=== PATIENT | female | born 1980 | race Caucasian/White ===

== ENCOUNTER 2018-03-13 12:07 | Emergency (ER) | payer MEDICAID ==
[2018-03-13] MEDS ORDERED: ALBUTEROL NEB 2.5 MG/3 ML INH STA (12:21)
[2018-03-13] MEDS ORDERED: guaiFENesin/CODEINE 5 ML UDC PO STA (12:21)
[2018-03-13] MEDS ORDERED: DOCUSATE SODIUM 250 MG CAPSULE PO STA (12:21)
--- NOTE | 2018-03-13 12:23 | ED Physician Documentation ---
History of Present Illness - Stated complaint Stated Complaint: DIZZY/COUGH/EAR PX - Chief complaint Chief Complaint: General - History obtained from History obtained from: Patient, Family - History of Present Illness Timing: Other (Sick for 5 days, it started with prominent body aches and fevers and morphed into productive cough with posttussive emesis, left ear pain and dizziness. She is not running fevers anymore that she knows of. No possibility of and no underlying illnesses. 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 - Present Medications Home Medications: Ambulatory Orders Medication Instructions Recorded Confirmed Albuterol Sulf [Ventolin Hfa 1 - 2 puffs INH Q4HR PRN #1 inhaler 03/13/18 Inhaler] Hydrocodone Bit/Homatrop Me-Br 5 - 10 ml PO Q4HR PRN #120 ml 03/13/18 [Hydrocodone-Homatropine Syrup] Levofloxacin [Levaquin] 750 mg PO DAILY #6 tablet 03/13/18 Meclizine [Antivert] 25 mg PO Q6H PRN #15 tablet 03/13/18 - Allergies Allergies/Adverse Reactions: Allergies Allergy/AdvReac Type Severity Reaction Status Date / Time amoxicillin [Amoxicillin] Allergy Rash Verified 01/21/15 12:56 erythromycin base Allergy Rash Verified 03/13/18 12:13 [Erythromycin Base] - Social History Does the pt smoke?: Yes Smoking Status: Former smoker Does the pt drink ETOH?: No Does the pt have substance abuse?: No - POLST Patient has POLST: No POLST Status: Full Code PD ED PE NORMAL - Vitals Vital signs reviewed: Yes (Tachycardic) - General General: Alert and oriented X 3, No acute distress - HEENT HEENT: PERRL, EOMI, Pharynx benign, Other (Initially unable to view the tympanic membranes due to cerumen bilaterally) - Neck Neck: Supple, no meningeal sign, No bony TTP - Cardiac Cardiac: RRR, No murmur - Respiratory Respiratory: Other (Diminished and rhonchorous at the bases, nonlabored) - Abdomen Abdomen: Non tender - Derm Derm: No rash - Neuro Neuro: Alert and oriented X 3, Normal speech Results - Vitals Vitals: Vital Signs - 24 hr 03/13/18 03/13/18 12:09 13:00 Temperature 37.1 C Heart Rate 122 H 124 H Respiratory 22 16 Rate Blood Pressure 141/102 H O2 Saturation 98 Oxygen O2 Source Room air - Labs Labs: Laboratory Tests 03/13/18 03/13/18 03/13/18 13:00 13:28 13:28 WBC 12.8 H RBC 4.80 Hgb 13.5 Hct 38.7 MCV 80.6 L MCH 28.1 MCHC 34.8 RDW 14.3 Plt Count 349 MPV 9.0 Neut # (Auto) 9.7 H Lymph # (Auto) 1.8 Pitt # (Auto) 1.2 H Eos # (Auto) 0.0 Baso # (Auto) 0.0 Absolute Nucleated RBC 0.00 Nucleated RBC % 0.0 Sodium 132 L Potassium 3.1 L Chloride 101 Carbon Dioxide 18 L Anion Gap 13.0 BUN 7 Creatinine 0.6 Estimated GFR (MDRD) 112 Glucose 113 H Lactic Acid Calcium 9.0 Total Bilirubin 1.4 H AST 65 H ALT 67 H Alkaline Phosphatase 80 Total Protein 7.6 Albumin 4.2 Globulin 3.4 Albumin/Globulin Ratio 1.2 Lipase 20 L Influenza A (Rapid) Negative Influenza B (Rapid) Negative 03/13/18 13:28 WBC RBC Hgb Hct MCV MCH MCHC RDW Plt Count MPV Neut # (Auto) Lymph # (Auto) Pitt # (Auto) Eos # (Auto) Baso # (Auto) Absolute Nucleated RBC Nucleated RBC % Sodium Potassium Chloride Carbon Dioxide Anion Gap BUN Creatinine Estimated GFR (MDRD) Glucose Lactic Acid 1.3 Calcium Total Bilirubin AST ALT Alkaline Phosphatase Total Protein Albumin Globulin Albumin/Globulin Ratio Lipase Influenza A (Rapid) Influenza B (Rapid) - Rads (name of study) 2v chest Radiology: EMP read contemporaneously (Bronchitis with mild left basilar pneumonia) Procedures - General procedure General procedure: Cerumen was removed from the left ear using a combination of syringe irrigation and Debrox with good success and she does have otitis media on the left. PD MEDICAL DECISION MAKING - ED course ED course: 37-year-old woman presents with prodrome of flulike symptoms and now predominant productive cough. She is persistently tachycardic and therefore an IV was placed fluids were given and labs were checked. She has modest leukocytosis, mild Hypokalemia and mild hepatitis probably from the underlying viral syndrome. Better after symptomatic treatment With cough syrup, meclizine, IV fluids. Potassium was repleted orally. She was given IV Levaquin. Recheck of the liver enzymes was advised after the illness. She also has left otitis media but the pneumonia is more pressing. Departure - Departure Disposition: Home, Self Care Clinical Impression: Dehydration, Hypokalemia, Elevated liver enzymes LOM (left otitis media) Qualifiers: Otitis media type: suppurative Chronicity: acute Recurrence: not specified as recurrent Spontaneous tympanic membrane rupture: without spontaneous rupture Qualified Code(s): H66.002 - Acute suppurative otitis media without spontaneous rupture of ear drum, left ear Left lower lobe pneumonia Qualifiers: Pneumonia type: due to unspecified organism Qualified Code(s): J18.1 - Lobar pneumonia, unspecified organism Condition: Good Record reviewed to determine appropriate education?: Yes Instructions: Hypokalemia Dc, ED Pneumonia Adult Prescriptions: Albuterol Sulf [Ventolin Hfa Inhaler] 1 - 2 puffs INH Q4HR PRN #1 inhaler PRN Reason: Shortness Of Air/Wheezing Hydrocodone Bit/Homatrop Me-Br [Hydrocodone-Homatropine Syrup] 5 - 10 ml PO Q4HR PRN #120 ml PRN Reason: Cough Levofloxacin [Levaquin] 750 mg PO DAILY #6 tablet Meclizine [Antivert] 25 mg PO Q6H PRN #15 tablet PRN Reason: Vertigo Comments: As discussed you should follow-up with your physician towards the end of the week, consider rechecking mildly elevated liver enzymes to make sure that has resolved with the illness. Also blood pressure recheck is yours was high here today in the range of 140/100. Return for new or worsening symptoms. Drink plenty of fluids. Forms: Activity restrictions
[2018-03-13] MEDS ORDERED: CARBAMIDE PEROXIDE 6.5% OTIC DROPS LEFTEAR ONE (12:27)
[2018-03-13] MEDS ORDERED: MECLIZINE 12.5 MG TABLET PO STA (12:34)
--- NOTE | 2018-03-13 12:47 | XRAY Report ---
Reason: cough Procedure Date: 03/13/2018 Accession Number: [id number] / [id number] Procedure: XR - Chest 2 View X-Ray CPT Code: 35532 FULL RESULT: EXAM: CHEST RADIOGRAPHY EXAM DATE: 03/13/2018 12:36 PM. CLINICAL HISTORY: Cough. COMPARISON: 09/01/2013. TECHNIQUE: 2 views. FINDINGS: Lungs/Pleura: Small amount of groundglass opacity at the left lung base. Minimal bronchial wall thickening. No pleural effusion. No pneumothorax. Mediastinum: Cardiac silhouette size appears unremarkable. Other: None. IMPRESSION: Minimal bronchial wall thickening and small amount of groundglass at the left lung base, suggesting airway inflammation with mild pneumonia in the proper setting. RADIA
[2018-03-13] MEDS ORDERED: SODIUM CHLORIDE 0.9% 1,000 ML IV ONE (12:55)
[2018-03-13 13:44] LABS: ALBUMIN 4.2 g/dL (3.2-5.5); ALBUMIN/GLOBULIN RATIO 1.2 (1.0-2.2); BILIRUBIN,TOTAL 1.4 mg/dL (0.2-1.0); CREATININE 0.6 mg/dL (0.4-1.0); TOTAL PROTEIN 7.6 g/dL (6.7-8.2)
[2018-03-13 13:53] LABS: BASOPHILS % (AUTO) 0.4 %; EOSINOPHILS % (AUTO) 0.2 %; HGB - HEMOGLOBIN 13.5 g/dL (12.0-16.0); LYMPHOCYTES # (AUTO) 1.8 10^3/uL (1.5-3.5); MEAN CORPUSCULAR HEMOGLOBIN 28.1 pg (27.0-31.0); MEAN CORPUSCULAR HGB CONC 34.8 g/dL (32.0-36.0); MEAN CORPUSCULAR VOLUME 80.6 fL (81.0-99.0); MONOCYTES # (AUTO) 1.2 10^3/uL (0.0-1.0); MONOCYTES % (AUTO) 9.4 %; NEUTROPHILS # (AUTO) 9.7 10^3/uL (1.5-6.6); PLT - PLATELET COUNT 349 10^3/uL (130-450); RED CELL DISTRIBUTION WIDTH 14.3 % (12.0-15.0); WHITE BLOOD COUNT 12.8 x10^3/uL (4.8-10.8)
[2018-03-13] MEDS ORDERED: levoFLOXacin 750 MG/150 ML 750 MG/150 ML BAG IV ONE (14:02)
[2018-03-13] MEDS ORDERED: IOPAMIDOL-300 100 ML VIAL ONE (14:07)
[2018-03-13] MEDS ORDERED: POTASSIUM BICARB 25 MEQ TABLET PO STA (14:11)
[2018-03-13 15:30] VITALS: BP 122/89
== END 2018-03-13 15:35 | disposition home or self-care (01) ==
LOC: ED 12:07
DX: E86.0 Dehydration (principal); E87.6 Hypokalemia; R74.8 Abnormal levels of other serum enzymes; H66.002 Acute suppurative otitis media without spontaneous rupture of ear drum, left ear; J18.1 Lobar pneumonia, unspecified organism; H61.22 Impacted cerumen, left ear
CPT/HCPCS: 36415; 69209; 71046; 80053; 83605; 83690; 85025; 87275; 87276; 94640; 96365; 99283; A9270

== ENCOUNTER 2018-09-26 15:51 | Emergency (ER) | payer MEDICAID ==
--- NOTE | 2018-09-26 16:56 | ED Physician Documentation ---
PD HPI LOWER EXT INJURY - Stated complaint Stated Complaint: L LEG PAIN/MUSCLE SPASMS - Chief complaint Chief Complaint: Ext Problem - History obtained from History obtained from: Patient - History of Present Illness PD HPI LOW EXT INJURY LOCATION: Left, Thigh, Calf Type of injury: No: Fall, Twist Where injury occurred: Home Timing - onset: How many weeks ago (2-3) Timing - duration: Weeks (2-3) Timing - details: Abrupt onset (she was just walking normally and felt sudden po p and pain in left posterolateral thigh. Has pain there and feels she is having muscle spasms. The pain and spasms have increased. She is limping and is also feeling pain in calf and behind knee now as well. Feeling like continue muscle spasm the past several days. No bruising.) Improved by: Rest Worsened by: Moving, Palpating, Other (walking) Associated symptoms: No: Weakness, Numbness, Discolored Similar symptoms before: Has not had sx before Recently seen: Not recently seen Review of Systems Constitutional: denies: Fever, Chills Cardiac: denies: Chest pain / pressure Respiratory: denies: Dyspnea, Cough Skin: denies: Rash, Lesions Musculoskeletal: denies: Back pain Neurologic: denies: Focal weakness, Numbness PD PAST MEDICAL HISTORY - Past Medical History Cardiovascular: None Respiratory: None Neuro: None Endocrine/Autoimmune: None GI: None AUTO HIKER: None : None HEENT: None Psych: None Musculoskeletal: None Derm: None - Past Surgical History 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 - Present Medications Home Medications: Ambulatory Orders Medication Instructions Recorded Confirmed Hydrocodone Bit/Homatrop Me-Br 5 - 10 ml PO Q4HR PRN #120 ml 03/13/18 [Hydrocodone-Homatropine Syrup] Levofloxacin [Levaquin] 750 mg PO DAILY #6 tablet 03/13/18 RX: Albuterol Sulf [Ventolin Hfa 1 - 2 puffs INH Q4HR PRN #1 inhaler 03/13/18 Inhaler] RX: Meclizine [Antivert] 25 mg PO Q6H PRN #15 tablet 03/13/18 Dexamethasone [Decadron] 4 mg PO DAILY #5 tablet 09/26/18 Hydrocodone/Acetaminophen [Paris 1 each PO Q6H PRN #20 tablet 09/26/18 5-325 Tablet] RX: diazePAM [Diazepam] 5 mg PO BID PRN #20 tablet 09/26/18 - Allergies Allergies/Adverse Reactions: Allergies Allergy/AdvReac Type Severity Reaction Status Date / Time amoxicillin [Amoxicillin] Allergy Rash Verified 09/26/18 16:06 erythromycin base Allergy Rash Verified 09/26/18 16:06 [Erythromycin Base] - Social History Does the pt smoke?: Yes Smoking Status: Former smoker Does the pt drink ETOH?: No Does the pt have substance abuse?: No - Immunizations Immunizations are current?: Yes - POLST Patient has POLST: No POLST Status: Full Code PD ED PE NORMAL - Vitals Vital signs reviewed: Yes - General General: Alert and oriented X 3, Well developed/nourished, Other (appears in pain behind left thigh and knee. guarded ROM of the knee.) - Back Back: No spinal TTP, Other (not tender in back muscles. ) - Derm Derm: Normal color, Warm and dry - Extremities Extremities: No edema, No calf tenderness / cord, Other (She is tender in lateral hamstring muscle belly area. Not tender at lower thigh/tendons area, though palpation of the tendons lower posterior thigh and popliteal area causes pain in muscle higher. No bruising noted. ) - Neuro Neuro: No motor deficit, No sensory deficit Results - Vitals Vitals: Vital Signs - 24 hr 09/26/18 09/26/18 16:01 18:27 Temperature 36.6 C 36.4 C L Heart Rate 88 74 Respiratory 18 18 Rate Blood Pressure 177/112 H 125/97 H O2 Saturation 100 97 Oxygen O2 Source Room air - Rads (name of study) duplex U/S Radiology: Prelim report reviewed (no DVT), See rad report PD MEDICAL DECISION MAKING - ED course Complexity details: considered differential (seems like hamstring muscle strain/partial tear, but not at tendons, with spasms. Likely pesissting and not healing due to continued use (normal walking). Will add crutches and knee brace.), d/w patient Departure - Departure Disposition: 01 Home, Self Care Clinical Impression: Hamstring tear Condition: Stable Record reviewed to determine appropriate education?: Yes Instructions: ED Strain Muscle Ext Follow-Up: Toni Blair MD [Provider Admit Priv/Credential] - Prescriptions: Dexamethasone [Decadron] 4 mg PO DAILY #5 tablet RX: diazePAM [Diazepam] 5 mg PO BID PRN #20 tablet PRN Reason: Spasms Hydrocodone/Acetaminophen [Paris 5-325 Tablet] 1 each PO Q6H PRN #20 tablet PRN Reason: Pain Comments: Use of crutches for partial weightbearing to reduce the amount of strain and stress on the hamstring muscles with walking. Use the knee brace to help support the knee and thereby less use of the hamstring muscle as well. Continue the naproxen/Aleve 2 to 3 tablets twice a day as an anti-inflammatory effect. You can add Decadron steroid for inflammation as well for the next several days. Use diazepam muscle relaxant twice daily as needed for spasms. Add Tylenol and/or hydrocodone if needed for pains. Follow-up with orthopedics within the in a week or so. Tomorrow call for an appointment for follow-up to see how well this is healing and for progression of activity. Typically muscle injuries in that area will just need time for healing with reduced use and protection such as the crutches. Forms: Activity restrictions Discharge Date/Time: 09/26/18 18:36
[2018-09-26] MEDS ORDERED: MORPHINE 10 MG/ML VIAL IM STA (17:33)
[2018-09-26] MEDS ORDERED: CHERRY SYRUP 10 ML UDC PO ONE (17:34)
[2018-09-26] MEDS ORDERED: diazePAM 5 MG TABLET PO STA (17:34)
[2018-09-26] MEDS ORDERED: DEXAMETHASONE 10 MG/ML VIAL PO STA (17:34)
[2018-09-26 18:28] VITALS: BP 125/97
== END 2018-09-26 18:36 | disposition home or self-care (01) ==
LOC: ED 15:51
DX: S76.812A Strain of other specified muscles, fascia and tendons at thigh level, left thigh, initial encounter (principal); X50.9XXA Other and unspecified overexertion or strenuous movements or postures, initial encounter; Y93.01 Activity, walking, marching and hiking; Y92.009 Unspecified place in unspecified non-institutional (private) residence as the place of occurrence of the external cause; M62.831 Muscle spasm of calf; Z87.891 Personal history of nicotine dependence
CPT/HCPCS: 93971; 96372; 99283; A9270